=== PATIENT | male | born 1985 | race African-American/Black ===

== ENCOUNTER 2022-08-01 18:09 | Emergency (ER) | payer MEDICAID ==
[~2022-08-01] VITALS: Ht 175.3 cm; Wt 78.0 kg
[2022-08-01] MEDS ORDERED: ACETAMINOPHEN 325MG TABLET PO STA (22:35)
[2022-08-02] MEDS ORDERED: NAPR-681 PO (01:04)
[2022-08-02] MEDS ORDERED: POLY15DR31 EACHEYE (01:04)
[2022-08-02 01:30] VITALS: BP 125/68
== END 2022-08-02 01:30 | disposition home or self-care (01) ==
LOC: ER 18:09
DX: H11.33 Conjunctival hemorrhage, bilateral (principal); R51.9 Headache, unspecified
CPT/HCPCS: 70486; 71046; 99284

== ENCOUNTER 2022-09-29 18:14 | Emergency (ER) | payer MEDICAID ==
[~2022-09-29] VITALS: Ht 175.3 cm; Wt 66.0 kg
[~2022-09-29 18:14] MED LIST: NAPR-681 PO; POLY15DR31 EACHEYE
[2022-09-30 00:31] VITALS: BP 133/87
== END 2022-09-30 00:32 | disposition home or self-care (01) ==
LOC: ER 18:14
DX: R68.89 Other general symptoms and signs (principal); J45.909 Unspecified asthma, uncomplicated; F31.9 Bipolar disorder, unspecified; F20.9 Schizophrenia, unspecified
CPT/HCPCS: 99281

== ENCOUNTER 2023-07-01 20:57 | Emergency (ER) | payer MEDICAID ==
[~2023-07-01] VITALS: Ht 175.3 cm; Wt 66.0 kg
[2023-07-01 21:00] VITALS: PULSE 110; RESP 20
[2023-07-01 21:06] VITALS: BP 122/74; TEMP 98.6; O2SAT 100
[2023-07-01] MEDS ORDERED: KETOROLAC 15MG/ML VIAL IM ONE (21:30)
== END 2023-07-01 22:32 | disposition left against medical advice (07) ==
LOC: ER 20:57
DX: R04.0 Epistaxis (principal); R51.9 Headache, unspecified; J45.909 Unspecified asthma, uncomplicated; Z86.59 Personal history of other mental and behavioral disorders
CPT/HCPCS: 99281

== ENCOUNTER 2023-07-02 06:03 | Emergency (ER) | payer MEDICAID ==
[~2023-07-02] VITALS: Ht 175.3 cm; Wt 59.0 kg
[2023-07-02 06:13] VITALS: BP 122/68; PULSE 96; RESP 20; O2SAT 99
[2023-07-02 06:56] VITALS: TEMP 98.2
[2023-07-02] MEDS: ACETAMINOPHEN 325MG TABLET PO ONE (06:56)
== END 2023-07-02 07:01 | disposition home or self-care (01) ==
LOC: ER 06:03
DX: R04.0 Epistaxis (principal); R51.9 Headache, unspecified; J45.909 Unspecified asthma, uncomplicated; Z98.890 Other specified postprocedural states; Z86.59 Personal history of other mental and behavioral disorders
CPT/HCPCS: 99282